=== PATIENT | male | born 1970 | race Asian ===

== ENCOUNTER 2021-08-01 14:59 | Emergency (ER) | payer OTHER ==
[~2021-08-01] VITALS: Ht 167.6 cm; Wt 74.8 kg
[2021-08-01 15:03] VITALS: BP 94/61; TEMP 98.3
== END 2021-08-01 15:20 | disposition home or self-care (01) ==
LOC: ED 14:59
DX: Z53.21 Procedure and treatment not carried out due to patient leaving prior to being seen by health care provider (principal); W22.8XXA Striking against or struck by other objects, initial encounter; Y92.89 Other specified places as the place of occurrence of the external cause
CPT/HCPCS: 99281

== ENCOUNTER 2021-08-03 08:47 | Emergency (ER) | payer OTHER ==
[~2021-08-03] VITALS: Ht 160 cm; Wt 72.6 kg
[2021-08-03 11:41] VITALS: BP 100/70; TEMP 97.7
== END 2021-08-03 11:41 | disposition home or self-care (01) ==
LOC: ED 08:47
DX: S02.651A Fracture of angle of right mandible, initial encounter for closed fracture (principal); S00.83XA Contusion of other part of head, initial encounter; W22.8XXA Striking against or struck by other objects, initial encounter; Y92.89 Other specified places as the place of occurrence of the external cause
CPT/HCPCS: 96372; 99283; J1885